=== PATIENT | male | born 1960 | race Caucasian/White ===

== ENCOUNTER 2020-01-01 22:00 | Inpatient (IN) | payer OTHER ==
[~2020-01-01] VITALS: Ht 175.3 cm; Wt 85.3 kg
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
[2020-01-01 22:00] VITALS: BP 97/64
[2020-01-01] MEDS ORDERED: REMERON15 M2 PO (22:20)
[2020-01-01] MEDS ORDERED: ZINC50 MG PO (22:21)
[2020-01-01] MEDS ORDERED: VITAMIN C500 M1 PO (22:21)
[2020-01-01 22:22] LABS: ABSOLUTE NEUTROPHILS 5.3 thou/uL (1.4-8.2); BASOPHILS 0.2 % (0.0-2.0); EOSINOPHILS 0.6 % (0.0-3.0); HEMATOCRIT 38.2 % (42.0-52.0); HEMOGLOBIN 12.6 gm/dL (14.0-18.0); LYMPHOCYTES 10.7 % (24.0-44.0); MCH 29.4 pg (26.0-34.0); MCV 89.1 fL (80.0-100.0); MONOCYTES 6.1 % (1.0-8.0); PLATELET COUNT 168 thou/uL (150-400); POLYS 82.4 % (36.0-66.0); RBC 4.29 mil/uL (4.50-6.00); RDW 16.1 % (10.5-14.5); WBC 6.5 thou/uL (4.0-11.0)
[2020-01-01 22:33] LABS: APTT 27.4 Seconds (24.5-32.8); INR 1.1
[2020-01-01 22:34] LABS: ANION GAP 9 mmol/L (7-16); BUN 20 mg/dL (7-18); CALCIUM 8.5 mg/dL (8.5-10.1); CHLORIDE 106 mmol/L (98-107); CO2 27 mmol/L (21-32); CREATININE 0.9 mg/dL (0.7-1.3); GLUCOSE 128 mg/dL (74-106); POTASSIUM 3.7 mmol/L (3.5-5.1); SODIUM 142 mmol/L (136-145)
[2020-01-01 22:44] LABS: MAGNESIUM 1.9 mg/dL (1.8-2.4); SGOT 20 U/L (15-37); SGPT 18 U/L (30-65); TOTAL BILIRUBIN 0.6 mg/dL (0.2-1.0); TOTAL PROTEIN 5.8 g/dL (6.4-8.2); TROPONIN-I <0.06 ng/mL (<0.06)
[2020-01-01] MEDS ORDERED: CYMBALTA30 MG PO (22:57)
[2020-01-01] MEDS ORDERED: VITAMIN D325 MC1 PO (22:57)
[2020-01-01] MEDS ORDERED: FLOMAX0.4 MG PO (22:57)
[2020-01-01] MEDS ORDERED: ACETAMINOPHEN325 M1 PO (22:58)
[2020-01-01] MEDS ORDERED: LAMOTRIGINE200 MG PO (22:59)
[2020-01-01] MEDS ORDERED: VIMPAT100 MG PO (23:00)
[2020-01-01] MEDS ORDERED: PROSCAR 5MG TABL5 M1 PO (23:00)
[2020-01-01] MEDS ORDERED: ASA81BEC PO (23:00)
--- NOTE | 2020-01-01 23:40 | NUR ---
Patient's brother Sergio notified that patient is going to be admitted.
[2020-01-02 02:57] LABS: URINE BILIRUBIN NEGATIVE (Negative); URINE BLOOD TRACE (Negative); URINE CLARITY SL CLOUDY; URINE COLOR YELLOW; URINE GLUCOSE-RANDOM* NEGATIVE (Negative); URINE KETONES NEGATIVE (Negative); URINE LEUKOCYTES 2+ (Negative); URINE NITRITE POSITIVE (Negative); URINE PROTEIN (DIPSTICK) TRACE (Negative)
[2020-01-02 02:59] LABS: BACTERIA >30 Many /HPF (None Seen); CRYSTALS None Seen /LPF (None Seen); HYALINE CASTS 0-3 Few /LPF (None Seen); MUCUS None Seen strn/LPF (None Seen); SQUAMOUS None Seen /LPF (0-3); URINE RBC None Seen /HPF (0-2)
[2020-01-02 03:58] LABS: CALCIUM 7.6 mg/dL (8.5-10.1); CREATININE 0.8 mg/dL (0.7-1.3)
--- NOTE | 2020-01-02 07:49 | EKG ---
[facility] [place] [address] ELECTROCARDIOGRAM REPORT Name: ROBERTH RUSSO Room #: 170-6 ADM IN M.R.#: [id number] Admission: 01/01/20 Attend Phys: Miranda Rangel MD Discharge: Date of : 62 Report #: [id number] THIS REPORT FOR: cc: Ani Julio MD, Ramilo MD Lundgren,Doe Awad MD [facility] ~ THIS REPORT FOR: //name// [facility] ED Test Date: 2020-01-01 Test Time: 22:12:00 Pat Name: ROBERTH RUSSO Department: Room: 170 Gender: M [employer] Glazer: linda : 1960 Requested By: Nash Dunn Order Number: [id number] MD: Doe Pineda Measurements Intervals [place] Rate: 89 P: 24 AL: 153 QRS: -80 QRSD: 95 T: 46 QT: 360 QTc: 439 Interpretive Statements Sinus rhythm Left anterior fascicular block Low voltage, precordial leads Right ventricular conduction delay Nonspecific T abnormalities, anterior leads Baseline wander in lead(s) V3 No previous ECG available for comparison Electronically Signed On 01-02-2020 7:48:59 EXTERMINATOR HELPER by Doe Pineda [email or web address] <ELECTRONICALLY SIGNED> By: Doe Pineda MD, FACC 01/02/20 0748 11 11 Doe Pineda MD, FAC /EPI
--- NOTE | 2020-01-02 09:52 | NUR ---
TAYE RUSSO GIVEN UPDATE ON PT'S CURRENT HEALTH STATUS AND POC
[2020-01-02 11:17] VITALS: BP 117/74
--- NOTE | 2020-01-02 12:00 | NUR ---
X-RAY CONFIRMED PICC LINE PLACEMENT TO R INDIRA.
--- NOTE | 2020-01-02 12:00 | NUR ---
X-RAY CONFIRMED PICC PLACEMENT TO R IJ.
--- NOTE | 2020-01-02 14:52 | NUR ---
GUARDIAN JOSÉ MIGUEL ANTOINE CALLED, SPOKE WITH, REPORTS NEED TO FOLLOW OTHER RESUSCITATVE MEASURES EXCEPT INTUBATION.
--- NOTE | 2020-01-02 16:10 | NUR ---
VAT CONSULTED FOR A CL FOR THIS COVID+ PT. RTIJ TL PLACED. PLEASE SEE NI FOR DETAILS
--- NOTE | 2020-01-02 22:30 | NUR ---
Spoke with BRYCE Aguilera at this time. Notified that patient has been off levophed for 1 hour and vitals are stable. Reports pt can be admitted as CC tele
[2020-01-02 22:40] VITALS: BP 101/58
--- NOTE | 2020-01-02 22:47 | NUR ---
Attempted to call report to medical floor nurse. Unable to take report. Will call back
[2020-01-02 23:03] VITALS: BP 100/57
[2020-01-02 23:31] VITALS: BP 120/62
[2020-01-03 04:22] VITALS: BP 105/52
[2020-01-03 05:05] LABS: ABSOLUTE NEUTROPHILS 3.9 thou/uL (1.4-8.2); BASOPHILS 0.4 % (0.0-2.0); EOSINOPHILS 0.9 % (0.0-3.0); HEMATOCRIT 35.3 % (42.0-52.0); HEMOGLOBIN 11.7 gm/dL (14.0-18.0); LYMPHOCYTES 21.2 % (24.0-44.0); MCHC 33.2 g/dL (28.0-37.0); MCV 90.5 fL (80.0-100.0); MONOCYTES 6.7 % (1.0-8.0); PLATELET COUNT 164 thou/uL (150-400); POLYS 70.8 % (36.0-66.0); RBC 3.91 mil/uL (4.50-6.00); RDW 16.4 % (10.5-14.5); WBC 5.5 thou/uL (4.0-11.0)
[2020-01-03 05:22] LABS: CALCIUM 8.2 mg/dL (8.5-10.1); CREATININE 0.7 mg/dL (0.7-1.3); POTASSIUM 3.6 mmol/L (3.5-5.1)
--- NOTE | 2020-01-03 07:27 | NUR ---
ADMITTED FROM ER UNDER 'S CARE. DOES NOT ANSWER ANY QUESTIOSN FOR FOLLOWS ANY DIRECTIONS. KEPT NPO FOR ASPIRATION PRECAUTION. NO S/S ACUTE DISTRESS NOTED OR REPORTED AT THIS TIME. CARE TRANSFERRED TO INCOMING RN AT THIS TIME.
[2020-01-03 07:54] VITALS: BP 101/64
--- NOTE | 2020-01-03 10:34 | NUR ---
The brother of the patient called and claimed that the patient had seizure history. Dr. Arrington is paged about it, awaiting for response.
[2020-01-03 11:07] VITALS: BP 126/59
--- NOTE | 2020-01-03 11:34 | NUR ---
PatiNT bg 70, the staff checked the BG hx, it has been going down. Dr. Arrington is paged, awaiting response. The staff padded the bed for seizure proctol.
--- NOTE | 2020-01-03 12:37 | NUR ---
Dr. Hayes came to the floor, the staff talked to Dr. Hayes about the concern of BG.
[2020-01-03 15:10] VITALS: BP 107/71
--- NOTE | 2020-01-03 16:21 | NUR ---
INITIAL ASSESSMENT: Received consult. MORGAN reviewed chart and spoke with nursing and attending physician. Pt was admitted from [facility] due to pneumonia. Pt placed in Enhanced Isolation due to COVID-19. Pt had tested positive at the facility. Pt is afebrile and on 3L of O2. Pt is on IV abx. ID consulted. ST evaluated pt earlier today. Pt is on a pureed diet with honey thickened liquids. MORGAN spoke with pt's brother, Sergio, via phone. Introduced role of MORGAN. Pt has lived at [facility] for over a year. Pt is normally w/c bound and requires assistance with ADLs. Plan is for pt to return to the facility when medically stable. MORGAN faxed clinical info for review and left voice message for Dione in admissions. MORGAN is following to assist as needed with discharge planning.
[2020-01-03 21:27] VITALS: BP 103/82
[2020-01-04 05:26] LABS: ABSOLUTE NEUTROPHILS 4.3 thou/uL (1.4-8.2); ALBUMIN 2.7 g/dL (3.4-5.0); BASOPHILS 0.6 % (0.0-2.0); CALCIUM 8.4 mg/dL (8.5-10.1); CREATININE 0.8 mg/dL (0.7-1.3); EOSINOPHILS 0.6 % (0.0-3.0); HEMATOCRIT 36.1 % (42.0-52.0); HEMOGLOBIN 11.8 gm/dL (14.0-18.0); LYMPHOCYTES 22.2 % (24.0-44.0); MCH 29.5 pg (26.0-34.0); MCHC 32.6 g/dL (28.0-37.0); MCV 90.3 fL (80.0-100.0); MONOCYTES 8.2 % (1.0-8.0); PLATELET COUNT 180 thou/uL (150-400); POLYS 68.4 % (36.0-66.0); POTASSIUM 3.3 mmol/L (3.5-5.1); RDW 16.5 % (10.5-14.5); TOTAL BILIRUBIN 0.5 mg/dL (0.2-1.0); TOTAL PROTEIN 5.4 g/dL (6.4-8.2); WBC 6.2 thou/uL (4.0-11.0)
[2020-01-04 05:37] LABS: INR 1.1; PROTIME 10.9 Seconds (9.3-11.4)
[2020-01-04 07:16] VITALS: BP 107/62
[2020-01-04 08:10] VITALS: BP 125/70
[2020-01-04 11:10] VITALS: BP 107/66
--- NOTE | 2020-01-04 13:21 | NUR ---
MORGAN reviewed chart and spoke with nursing and attending physician. Pt remains in Enhanced Isolation due to COVID-19. Pt is afebrile and on 3L of O2. Pt has started course of Remdesivir and will have convalescent plasma. MORGAN received pt's guardianship ppwk from [facility] and placed on pt's chart. MORGAN spoke with Dione in admissions at [facility] who states that pt had his first positive test on 11/28. Pt was at [facility] and then returned to [facility] after having two negative tests. Dione faxed ppwk with positive test results to MORGAN. Placed on pt's chart. Plan is for pt to return to [facility] when medically stable. MORGAN is following to assist as needed with discharge planning.
[2020-01-04 15:13] VITALS: BP 101/63
--- NOTE | 2020-01-04 19:04 | NUR ---
PATIENT RESTED IN BED THROUGH THE DAY. HE ALERT ORIENTED TO SELF. DOES NOT SEEM TO BE IN PAIN. PLEASANT WITH CARES. WILL CONT WITH PLAN OF CARE.
[2020-01-04 20:06] VITALS: BP 116/69
[2020-01-05 05:58] VITALS: BP 96/67
--- NOTE | 2020-01-05 06:40 | NUR ---
PT VSS OVERNIGHT EXCEPT FOR SOME BURST OF ST IN 160'S. NO OTHER ISSUES WITH HR. POC WITH IVF/IVPB. ROBLEDO IN PLACE WITH GOOD DRAINAGE. X1 BM OVERNIGHT. NOTICED PT HAS TREMORS. HOURLY ROUNDING.
[2020-01-05 09:12] VITALS: BP 94/75
[2020-01-05 10:51] LABS: ABSOLUTE NEUTROPHILS 6.9 thou/uL (1.4-8.2); BASOPHILS 0.3 % (0.0-2.0); EOSINOPHILS 1.9 % (0.0-3.0); HEMATOCRIT 42.1 % (42.0-52.0); LYMPHOCYTES 9.6 % (24.0-44.0); MCH 29.5 pg (26.0-34.0); MCHC 32.9 g/dL (28.0-37.0); MCV 89.8 fL (80.0-100.0); MONOCYTES 4.9 % (1.0-8.0); PLATELET COUNT 231 thou/uL (150-400); POLYS 83.3 % (36.0-66.0); RBC 4.69 mil/uL (4.50-6.00); RDW 16.8 % (10.5-14.5); WBC 8.2 thou/uL (4.0-11.0)
[2020-01-05 10:56] LABS: HEMOGLOBIN 13.9 gm/dL (14.0-18.0)
[2020-01-05 11:00] VITALS: BP 100/80
[2020-01-05 11:19] LABS: ALBUMIN 3.2 g/dL (3.4-5.0); ANION GAP 15 mmol/L (7-16); BUN 8 mg/dL (7-18); CALCIUM 8.4 mg/dL (8.5-10.1); CHLORIDE 104 mmol/L (98-107); CO2 22 mmol/L (21-32); CREATININE 1.1 mg/dL (0.7-1.3); DIRECT BILIRUBIN 0.3 mg/dL (<0.1-0.2); GLUCOSE 98 mg/dL (74-106); SGOT 37 U/L (15-37); SGPT 21 U/L (30-65); SODIUM 141 mmol/L (136-145); TOTAL BILIRUBIN 0.9 mg/dL (0.2-1.0); TOTAL PROTEIN 6.3 g/dL (6.4-8.2); TROPONIN-I <0.06 ng/mL (<0.06)
[2020-01-05 11:21] LABS: POTASSIUM 2.6 mmol/L (3.5-5.1)
--- NOTE | 2020-01-05 12:20 | EKG ---
[facility] [place] [address] ELECTROCARDIOGRAM REPORT Name: ANNABELLEWENDY SCHULZEN Room #: 353- ADM IN M.R.#: [id number] Admission: 01/01/20 Attend Phys: Miranda Rangel MD Discharge: Date of : 62 Report #: [id number] THIS REPORT FOR: cc: Ani Julio MD, Ramilo MD Santiago,Arnulfo LOPEZ [facility] ~ THIS REPORT FOR: //name// [facility] Test Date: 2020-01-05 Test Time: 10:32:27 Pat Name: ROBERTH RUSSO Department: Room: 353 P Gender: M Stem Roller Operator: MARTINA : 1960 Requested By: Rashard Molina Order Number: [id number] MD: Arnulfo Guillermo Measurements Intervals [place] Rate: 120 P: MO: QRS: -70 QRSD: 95 T: 54 QT: 335 QTc: 474 Interpretive Statements Atrial fibrillation Ventricular premature complex Left anterior fascicular block Borderline low voltage, extremity leads Abnormal R-wave progression, early transition Compared to ECG 01/01/2020 22:12:00 Ventricular premature complex(es) now present Sinus rhythm no longer present T-wave abnormality no longer present Electronically Signed On 01-05-2020 12:19:56 CREATIVE SERVICES SPECIALIST by Arnulfo Guillermo [email or web address] <ELECTRONICALLY SIGNED> By: Arnulfo Guillermo MD, FACC 01/05/20 1219 31 103 Arnulfo Guillermo MD, [facility] /EPI
[2020-01-05 12:23] VITALS: BP 91/72
[2020-01-05] MEDS ORDERED: LYRICA150 MG PO (14:13)
[2020-01-05] MEDS ORDERED: MILK OF MA400 MG/5 M PO (14:13)
[2020-01-05 16:00] VITALS: BP 100/88
[2020-01-05 16:10] LABS: CALCIUM 7.6 mg/dL (8.5-10.1)
[2020-01-05 16:11] LABS: POTASSIUM 3.7 mmol/L (3.5-5.1)
--- NOTE | 2020-01-05 16:15 | NUR ---
MORGAN reviewed chart and spoke with nursing and attending physician. Pt remains in Enhanced Isolation due to COVIE-19. Pt is afebrile and not requiring O2. Pt is on IV abx and IV abx. [employer] called this morning due to elevated heart rate. Attending physician spoke with pt's brother/legal guardian via phone to provide update and discuss treatment plan. Pt is a DNI. Updates to be faxed to [facility] tomorrow for review. Plan is for pt to discharge back to [facility] when medically stable. MORGAN is following to assist as needed with discharge planning.
--- NOTE | 2020-01-05 19:20 | NUR ---
RN ASSUMED PT'S CARE AT 0700AM, PT IS A&OX1 ( PERSON), PT IS CONFUSED , PT IS ON O2 3L/MIN/NC, BUT PT STARTED TACHYCARDIA ( HR 160-200) AND SHAKING ABOUT 1000AM , RN HAS CALLED , AND RAPID RESPONSE TEAM, NEW ORDER RECEIVED , PT HAS NEW MEDICATIONS FOR TACHYCARDIA AND RESUME SEIZURE MEDICATIONS, PT'S HR AND SHAKING HAVE CONTROLLED, PT HAS LOW POTTASSUM AND LOW MAGANISUM REPLAECMENT , RN HAS REPORTED TO NEXT SHIFT TO KEEP EYE ON PT.
[2020-01-05 20:56] VITALS: BP 108/63
[2020-01-06 05:12] VITALS: BP 94/62
[2020-01-06 06:37] LABS: HEMATOCRIT 34.6 % (42.0-52.0); MCH 29.3 pg (26.0-34.0); MCHC 32.6 g/dL (28.0-37.0); RBC 3.85 mil/uL (4.50-6.00); RDW 16.5 % (10.5-14.5); WBC 6.6 thou/uL (4.0-11.0)
[2020-01-06 06:43] LABS: HEMOGLOBIN 11.3 gm/dL (14.0-18.0)
[2020-01-06 06:51] LABS: ALBUMIN 2.7 g/dL (3.4-5.0); CALCIUM 8.1 mg/dL (8.5-10.1); CREATININE 0.7 mg/dL (0.7-1.3); DIRECT BILIRUBIN 0.2 mg/dL (<0.1-0.2); MAGNESIUM 2.5 mg/dL (1.8-2.4); POTASSIUM 3.2 mmol/L (3.5-5.1); TOTAL BILIRUBIN 0.5 mg/dL (0.2-1.0); TOTAL PROTEIN 5.3 g/dL (6.4-8.2)
[2020-01-06 07:44] VITALS: BP 95/54
[2020-01-06 11:04] VITALS: BP 109/71
--- NOTE | 2020-01-06 15:11 | NUR ---
MORGAN reviewed chart and spoke with nursing and attending physician. Pt remains in Enhanced Isolation due to COVID-19. Pt is afebrile and on 2L of O2. Pt is on IV abx and IV steroids. Neuro consult ordered. MORGAN spoke with Ila at [facility], who states that they are able to accept pt back over the weekend if pt is ready for discharge. Staff to contact the facility or Dione (direct marketing coordinator) to facilitate discharge. Will need finalized discharge orders/summary faxed to the facility when available. Chart copy needed. Nursing to call report and notify pt's family. SW is available to assist as needed with discharge planning. [facility]-- [place]: [phone]
[2020-01-06 15:16] VITALS: BP 106/67
--- NOTE | 2020-01-06 18:48 | NUR ---
PT TRANSFERED FROM [facility]. ORRIENTED TO ROOM. CALL LIGHT AND FALL PRECAUTIONS IN PLACE. BED PADDED FOR SEIZURE PRECATIONS.
--- NOTE | 2020-01-06 19:54 | NUR ---
TRANSFERED TO . NO COMPLAINT OF PAIN.
[2020-01-06 21:00] VITALS: BP 123/80
[2020-01-07 00:18] VITALS: BP 106/68
--- NOTE | 2020-01-07 03:37 | NUR ---
Assumed pt care at 1900. Pt is a transfer from . Pt is sleeping upon arrival to room but is arousable. Denies pain. Pt is non-ambulatory. Laying in bed, repsoitioned. Assessment completed and documented. Scheduled meds administered to pt. Tolerated PO intake. No acute event overnight. Continue to monitor. No further needs at this time.
[2020-01-07 03:40] VITALS: BP 104/61
[2020-01-07 04:31] LABS: HEMATOCRIT 35.7 % (42.0-52.0); HEMOGLOBIN 11.7 gm/dL (14.0-18.0); MCH 29.4 pg (26.0-34.0); MCHC 32.7 g/dL (28.0-37.0); MCV 89.9 fL (80.0-100.0); RBC 3.97 mil/uL (4.50-6.00); RDW 16.9 % (10.5-14.5)
[2020-01-07 04:49] LABS: ALBUMIN 2.7 g/dL (3.4-5.0); CALCIUM 8.2 mg/dL (8.5-10.1); CREATININE 0.8 mg/dL (0.7-1.3); DIRECT BILIRUBIN 0.2 mg/dL (<0.1-0.2); MAGNESIUM 2.1 mg/dL (1.8-2.4); POTASSIUM 3.2 mmol/L (3.5-5.1); TOTAL BILIRUBIN 0.5 mg/dL (0.2-1.0); TOTAL PROTEIN 5.3 g/dL (6.4-8.2)
[2020-01-07 09:15] VITALS: BP 106/67
[2020-01-07 09:23] VITALS: BP 106/67
[2020-01-07] MEDS ORDERED: FLECAINIDE ACET50 M2 PO (10:19)
[2020-01-07] MEDS ORDERED: METOPROLOL SUCC25 M1 PO (10:20)
[2020-01-07] MEDS ORDERED: AUGMENTIN 875-1 EACH PO (10:25)
--- NOTE | 2020-01-07 12:11 | NUR ---
PT ASLEEP AT CHANGE OF SHIFT, WOKE UP FOR BREAKFAST, TAKING MEDS, AND VICKI CARE DONE PT WAS SOILED, LOOSE BM, PT ABLE TO TURN SELF SIDE TO SIDE TO HELP CHANGE LINENS UNDERNEATH, SKIN INTACT, BARRIER CREAM APPLIED TO SACRUM, D/C ORDERS FROM [facility], REPORT CALLED TO PARRISH AT [facility] TO TRANSPORT PT AROUND 1430, SPOKE TO BROTHER, ENRIQUE, UPDATED ON POC, WILL CALL HIM BACK AT TIME OF TRANSFER SO HE IS AWARE.
--- NOTE | 2020-01-07 14:47 | NUR ---
[facility] CAME TO MOVE PATIENT, TELE REMOVED, CLEANED AND PUT IN NURSES STATION, R TRIPLE LUMEN IJ REMOVED, GAUZE AND TEGADERM APPLIED, PT CLEANED, BRIEF PUT ON, NO PT BELONGINGS WERE IN THE ROOM, WHEN I GAVE REPORT TO PARRISH SHE STATED THAT HIS BELONGINGS WERE IN HIS ROOM SINCE HE LEFT [facility] VIA AMBULANCE
== END 2020-01-07 14:45 | DRG 871 ==
LOC: ER 22:00 → EROBS 23:38 → 3W 23:38 → EROBS 23:38 → 3W 01-02 23:04 → 2N 01-06 18:34
PROVIDERS: Emergency Medicine; Hospitalist; Internal Medicine; Nurse Practitioner Family; Specialist; ADMIT Internal Medicine; ATTEND Internal Medicine
PROC: 02H633Z Insertion of Infusion Device into Right Atrium, Percutaneous Approach (ICD-10-PCS; principal; 2020-01-02)
PROC: XW033E5 Introduction of Remdesivir Anti-infective into Peripheral Vein, Percutaneous Approach, New Technology Group 5 (ICD-10-PCS; 2020-01-04)
PROC: XW13325 Transfusion of Convalescent Plasma (Nonautologous) into Peripheral Vein, Percutaneous Approach, New Technology Group 5 (ICD-10-PCS; 2020-01-04)
DX: A41.9 Sepsis, unspecified organism (principal); U07.1 COVID-19; J12.89 Other viral pneumonia; J96.01 Acute respiratory failure with hypoxia; N39.0 Urinary tract infection, site not specified; N40.0 Benign prostatic hyperplasia without lower urinary tract symptoms; F32.9 Major depressive disorder, single episode, unspecified; F03.90 Unspecified dementia, unspecified severity, without behavioral disturbance, psychotic disturbance, mood disturbance, and anxiety; G40.909 Epilepsy, unspecified, not intractable, without status epilepticus; G62.9 Polyneuropathy, unspecified; I48.0 Paroxysmal atrial fibrillation; E87.6 Hypokalemia; Z79.899 Other long term (current) drug therapy
CPT/HCPCS: 10081; 10879